=== PATIENT | female | born 2000 | race Two or more races ===

== ENCOUNTER 2019-08-03 19:32 | Emergency (ER) | payer OTHER ==
[~2019-08-03] VITALS: Ht 154.9 cm; Wt 50.5 kg
[2019-08-03 19:35] VITALS: BP 102/69
== END 2019-08-03 22:02 | disposition left against medical advice (07) ==
LOC: EMS 19:35
DX: R53.1 Weakness (principal); Z53.21 Procedure and treatment not carried out due to patient leaving prior to being seen by health care provider